=== PATIENT | female | born 1995 | race Two or more races ===

== ENCOUNTER 2025-06-23 15:27 | Emergency (ER) | payer OTHER, SELFPAY ==
[2025-06-23 15:48] VITALS: BP 137/91; PULSE 70; RESP 18; TEMP 37; O2SAT 100; BMI 24.0
--- NOTE | 2025-06-23 15:56 | XR_ITS ---
Examination: CT abdomen and pelvis without contrast. Coronal 3-D reconstructions. Sagittal 2-D reconstructions. Date and time of exam: June 23, 2025, 1821 hours INDICATIONS: Onset left flank pain today CTDI: vol (mGy): 6.14 DLP: (mGycm): 333 Technique: Axial images of the abdomen have been obtained, 3 mm slice thickness Intravenous contrast material has not been administered. Low dose protocols were performed. One or more of the following dose reduction techniques were used; automated exposure control, adjustment of the mA and/or KV according to patient size, use of iterative reconstruction technique. Findings: No visualized liver or splenic lesion No gallstones No peripancreatic edema Normal adrenal glands 1 mm left renal calculus Mild left hydronephrosis, 2 mm distal left ureteral calculus No bowel obstruction No pericecal inflammatory change Anteverted uterus Mild disc narrowing posteriorly L5-S1 IMPRESSION: Mild left hydronephrosis secondary to 2 mm distal left ureteral calculus
--- NOTE | 2025-06-23 15:56 | PD.EDRME ---
Rapid Medical Screening Exam RME Arrival date/time: 06/23/25 15:27 30-year-old female with no known medical history presents to the emergency room with a chief complaint of left-sided flank pain that radiates down to the left lower abdominal area x 1 day I have greeted and performed a focused initial assessment of this patient. A comprehensive ED assessment and evaluation of the patient, analysis of all test results, and completion of the medical decision making process will be conducted by additional ED providers. Chief Complaint: Back Pain/Injury Vital signs: Vital Signs Temperature 98.6 F 06/23/25 15:48 Pulse Rate 70 06/23/25 15:48 Respiratory Rate 18 06/23/25 15:48 Blood Pressure 137/91 H 06/23/25 15:48 Pulse Oximetry (%) 100 06/23/25 15:48 Oxygen Delivery Method Room Air 06/23/25 15:48 Vital signs reviewed by provider: Yes Exam: Left CVA tenderness with palpation Tenderness to the left lower quadrant of the abdomen Clinical Impression: Ureteral calculi
[2025-06-23 16:51] LABS: Basophils # (Auto) 0.0 Thou/mm3 (0.0-0.2); Basophils % (Auto) 0 % (0-2.5); Eosinophils # (Auto) 0.0 Thou/mm3 (0.0-0.5); Eosinophils % (Auto) 0 % (0-10); Hematocrit 41.8 % (36.0-46.0); Hemoglobin 14.0 g/dL (12.0-16.0); Immature Granulocytes Auto 0.06 Thou/mm3 (0.00-0.00); Lymphocytes # (Auto) 1.3 Thou/mm3 (1.0-4.8); Lymphocytes % (Auto) 10 % (10-50); Mean Corpuscular HGB Conc 33.5 g/dl (31.0-37.0); Mean Corpuscular Hemoglobin 29.4 pg (25.0-35.0); Mean Corpuscular Volume 88 fL (80-100); Monocytes # (Auto) 0.5 Thou/mm3 (0.0-0.8); Monocytes % (Auto) 4 % (0-12); Neutrophils # (Auto) 11.2 Thou/mm3 (1.8-7.7); Neutrophils % (Auto) 86 % (37-80); Nucleated Red Blood Cell # 0.00 Thou/mm3 (0.00-0.00); Nucleated Red Blood Cell % 0 /100 WBC (0); Platelet Count 290 Thou/mm3 (140-440); RDW Standard Deviation 41.1 fL (36.4-46.3); Red Blood Count 4.77 Miln/mm3 (4.00-5.20); White Blood Count 13.1 Thou/mm3 (3.6-11.0)
[2025-06-23] MEDS: HYDROcodone/APAP 5/325 TABLET 1 TAB PO ×2 (17:08→20:17)
[2025-06-23 17:11] LABS: Collection Type, Urine Clean Catch
[2025-06-23 17:12] LABS: Alanine Aminotransferase 19 U/L (10-49); Albumin, Serum 5.1 gm/dL (3.5-5.0); Albumin/Globulin Ratio 1.8 (1.2-2.2); Alkaline Phosphatase 90 U/L (46-116); Anion Gap 10 (7-16); Aspartate Amino Transferase 22 U/L (0-34); BUN/Creatinine Ratio 10 Ratio (12-20); Bilirubin,Total 0.4 mg/dL (0.3-1.2); Blood Urea Nitrogen 10 mg/dL (9-23); Calcium 9.6 mg/dL (8.3-10.6); Calcium (Corrected) 9.6 mg/dL (8.5-10.1); Carbon Dioxide 27.0 mMol/L (20.0-31.0); Chloride 103 mMol/L (98-107); Creatinine (Component) 1.0 mg/dL (0.6-1.3); Estimated Creatinine Clearance 75.4 mL/min (>60); Globulin 2.9 gm/dL (2.3-3.5); Glucose 105 mg/dL (74-106); Lipase 37 U/L (12-53); Osmolality,Calculated 278 (275-295); Potassium 4.8 mMol/L (3.4-5.1); Sodium 140 mMol/L (136-145); Total Protein 8.0 gm/dL (5.7-8.2); eGFR > 60 See Note
[2025-06-23 17:16] LABS: Bilirubin,Urine Negative (Negative); Blood,Urine 3+ (Negative); Clarity,Urine Clear (Clear/Hazy); Color,Urine Lt-Yellow (Lt Yel-Yel); Glucose, Urine Negative (Negative); Ketones,Urine 3+ (Negative); Leukocyte Esterase,Urine Negative (Negative); Nitrite,Urine Negative (Negative); PH,Urine 6.0 (5.0-7.0); Protein,Urine Trace (Neg - Trace); RBC,Urine 17 /hpf (0-3); Specific Gravity,Urine 1.026 (1.001-1.035); Squamous Epithelial Cell,Urine 1 /hpf (0-5); Urobilinogen,Urine Negative mg/dL (0.0-1.0); WBC,Urine 3 /hpf (0-5)
[2025-06-23 17:21] LABS: HCG Qualitative,Urine Negative
--- NOTE | 2025-06-23 19:39 | PD.EDBACK ---
ED Back Injury Pain RME/HPI General Chief Complaint: Back Pain/Injury Stated Complaint: Lower left back pain Time Seen by Provider: 06/23/25 15:57 Arrival date/time: 06/23/25 15:27 This is a case of 30-year-old female with no medical history came in in the emergency room due to left flank pain radiating to the left lower abdomen and left lower back for 1 day patient denies injury or trauma with nausea but no vomiting no diarrhea no constipation persistence of the symptoms this patient decided to sought consult here in the emergency room Limitations: no limitations RME / HPI RME / HPI Narrative: 06/23/25 15:27 30-year-old female with no known medical history presents to the emergency room with a chief complaint of left-sided flank pain that radiates down to the left lower abdominal area x 1 day I have greeted and performed a focused initial assessment of this patient. A comprehensive ED assessment and evaluation of the patient, analysis of all test results, and completion of the medical decision making process will be conducted by additional ED providers. Exam: Left CVA tenderness with palpation Tenderness to the left lower quadrant of the abdomen Impression: Ureteral calculi Related Data Previous Rx's ?Medication ?Instructions ?Recorded hydrocodone 5 mg-acetaminophen 325 1 tab PO Q6H PRN pain #12 tabs 06/23/25 mg tablet ondansetron 4 mg disintegrating 4 mg PO Q8H #20 tabs 06/23/25 tablet tamsulosin 0.4 mg capsule 0.4 mg PO QDAY 10 days #10 caps 06/23/25 Allergies Allergy/AdvReac Type Severity Reaction Status Date / Time No Known Allergies Allergy Verified 06/23/25 15:33 Review of Systems Review of Systems Systems Reviewed: All systems reviewed, normal except as documented Past Medical History Social History SMOKING STATUS: Never smoker ED Exam General Limitations: Present no limitations General appearance: Present alert, in no apparent distress and other (Patient is awake alert oriented not in distress nontoxic looking well-hydrated well-nourished) Head Head exam: Present atraumatic, normocephalic and normal inspection Eye Eye exam: Present normal appearance, PERRL and EOMI ENT ENT exam: Present normal exam, normal oropharynx and mucous membranes moist Neck Neck exam: Present normal inspection, full ROM and trachea midline; Absent tenderness, meningismus, lymphadenopathy or thyromegaly Chest Chest inspection: Present normal inspection and symmetric chest wall rise; Absent tenderness Respiratory Respiratory exam: Present normal lung sounds bilaterally; Absent respiratory distress, wheezes, stridor, accessory muscle use or prolonged expiratory phase Cardiovascular Cardiovascular exam: Present regular rate, normal rhythm and normal heart sounds; Absent bradycardia, tachycardia, irregular rhythm, systolic murmur or diastolic murmur Abdominal Exam Abdominal exam: Present soft, tenderness (Mild tenderness left flank and left lower quadrant no CVA tenderness bladder is not distended not tender) and normal bowel sounds; Absent distention, guarding, rebound, rigidity, diminished bowel sounds, hyperactive bowel sounds, hypoactive bowel sounds, organomegaly, psoas sign, obturator sign, Maier's sign, Rovsing's sign, tenderness at McBurney's Point or hernia Extremities Exam Extremities exam: Present normal inspection and full ROM Back Exam Back exam: Present normal inspection and full ROM; Absent tenderness, CVA tenderness (R), CVA tenderness (L), muscle spasm, paraspinal tenderness, vertebral tenderness, rashes, sciatic notch tenderness (R), sciatic notch tenderness (L), straight leg raise (R) or straight leg raise (L) Neurological Exam Neurological exam: Present alert, oriented X3, CN II-XII intact, normal gait and reflexes normal; Absent motor sensory deficit Psychiatric Psychiatric exam: Present normal affect and normal mood Skin Skin exam: Present warm, dry, intact, normal color and other (Excellent skin turgor) Course Quality Measures none Orders Category Date Time Status CT abdomen pelvis wo con Stat Exams 06/23/25 15:56 Completed CBC Stat Lab 06/23/25 16:10 Completed CMP [Comprehensive Metabolic Panel] Stat Lab 06/23/25 16:10 Completed HCG Qualitative,Urine Stat Lab 06/23/25 16:58 Completed Lipase Stat Lab 06/23/25 16:10 Completed UA [Urinalysis] Stat Lab 06/23/25 16:58 Completed Urine Culture Stat Lab 06/23/25 16:58 Received HYDROcodone*/APAP 5/325 [[place] 5/325] Med 06/23/25 15:56 Discontinued 1 tab PO X1 ONE HYDROcodone*/APAP 5/325 [[place] 5/325] Med 06/23/25 19:35 Once 1 tab PO X1 ONE Ketorolac Inj [Toradol Inj] Med 06/23/25 19:35 Once 30 mg IM X1 ONE Ondansetron Odt [Zofran Odt] Med 06/23/25 19:35 Once 4 mg PO X1 ONE Tamsulosin HCl [Flomax] Med 06/23/25 19:35 Once 0.4 mg PO X1 ONE Vital Signs Vital signs: Vital Signs Temperature 98.6 F 06/23/25 15:48 Pulse Rate 70 06/23/25 15:48 Respiratory Rate 18 06/23/25 15:48 Blood Pressure 137/91 H 06/23/25 15:48 Pulse Oximetry (%) 100 06/23/25 15:48 Oxygen Delivery Method Room Air 06/23/25 15:48 Oxygen saturation is 100% in room air Back Pain / Injury MDM Narrative MDM Narrative:: This is a case of 30-year-old female with no medical history came in in the emergency room due to left flank pain radiating to the left lower abdomen and left lower back for 1 day patient denies injury or trauma with nausea but no vomiting no diarrhea no constipation persistence of the symptoms this patient decided to sought consult here in the emergency room physical examination patient is awake alert oriented not in distress nontoxic looking well-hydrated well-nourished vital signs stable BP stable not tachycardic not tachypneic afebrile and nonhypoxic patient noted to have mild to moderate tenderness on the left flank and mild tenderness in left lower abdomen no guarding no rebound no rigidity normal active bowel sounds in all quadrants negative psoas negative straight or negative Rovsing's negative McBurney's negative Maier sign negative CVA tenderness bladder is not distended not tender back exam noted to be normal ROM intact neurovascular intact blood test showed no leukocytosis no anemia kidney and liver function is normal no electrolyte imbalance urinalysis is normal patient CT scan of the abdomen pelvis showed a DDD lumbar and ureteral stone 2 mm in size with hydronephrosis at this point patient is well-hydrated thus hydration was not given but patient was given Toradol [place] which improved and resolve the pain patient was also given Zofran for vomiting and Flomax for ureteral stone patient will follow-up with PCP in 2 days for reevaluation and to see a urologist for ureteral stone and hydronephrosis and neurosurgeon for DDD lumbar at the time of exam no signs and symptoms of cauda equina no signs and symptoms sepsis dehydration or hypoxia for any worsening symptoms or any emergent concern return precaution in the ER is advised Patient was discharged with comfortable condition walking with stable gait. Patient verbalized no further complains explained diagnosis and answered patient question. Patient is comfortable with the proposed management plan including the need to follow up with his/her primary care physician and any specialist if applicable Discussed patient for any urgent condition or worsening sx, He/She needed to go to emergency room immediately or call 911. Patient acknowledge the responsibility to follow up as instructed and to monitor her/his symptoms. For any persistence of the symptoms for more than 3-5 days return precaution advised. Discussed the result of the test and was given printed discharge instruction Patient data External records reviewed:: [facility] previous records Clinical information provided by:: patient Social determinants that could affect healthcare access:: none Patient has the following chronic illnesses:: None How is presenting disease/condition affected by chronic disease/condition?: no chronic disease Evaluation data The following diagnostics were reviewed and interpreted by me:: lab results and radiology exam(s) Lab and/or radiology exams considered but not ordered:: Reviewed Interpretation Summary: Reviewed Medications / Prescriptions Medications or Prescriptions considered but not ordered:: Given Medication administrations:: Medication Administration History Hydrocodone Bitart/Acetaminophen (Hydrocodone/Apap 5/325 Tablet) 1 tab PO X1 ONE Stop: 06/23/25 19:36 Ketorolac Tromethamine (Ketorolac Inj 60 Mg/2 Ml Vial) 30 mg IM X1 ONE Stop: 06/23/25 19:36 Ondansetron HCl (Ondansetron Odt 4 Mg Tabrap) 4 mg PO X1 ONE; Protocol Stop: 06/23/25 19:36 Tamsulosin HCl (Tamsulosin Hcl 0.4 Mg Capsule) 0.4 mg PO X1 ONE Stop: 06/23/25 19:36 Discontinued Medications Hydrocodone Bitart/Acetaminophen (Hydrocodone/Apap 5/325 Tablet) 1 tab PO X1 ONE Stop: 06/23/25 15:57 Last Admin: 06/23/25 17:08 Dose: 1 tab Documented By: AA Given Consultations Consultation(s) initiated? (list below): No Diagnosis Differential diagnosis back pain/injury: lumbar radiculopathy, sciatica, pyelonephritis and other (Ureteral stone DDD lumbar herniated disc) Most likely diagnosis given after review of the tests above:: Ureteral stone DDD lumbar Admission Indicated Admission indicated?: not indicated Explain why admission is indicated or not indicated:: Not indicated Admission Request Was there a request for admission?: No Admission Attestation Admission request attestation: Not indicated Disposition Plan Disposition Plan: Discharge Discharge Attestation Discharge Attestation: The patient and all family members were given an opportunity to ask questions and understood the discharge instructions. Discharge instructions specifically effects, indications for sooner follow up or return to the emergency department, and the expected course of current diagnosis. Patient condition: Stable Discharge Plan Plan Patient Disposition: HOME (Self Care) Patient condition on transfer: Stable Prescriptions/Referrals Prescriptions/Med Rec: New hydrocodone-acetaminophen 5-325 mg tablet 1 tab PO Q6H MDD max 4 tabs per day PRN (Reason: pain) Qty: 12 0RF tamsulosin 0.4 mg capsule 0.4 mg PO QDAY 10 Days Qty: 10 0RF ondansetron 4 mg tablet,disintegrating 4 mg PO Q8H Qty: 20 0RF Referrals: No Primary/Family,Physician [Primary Care Provider] - In 1 week Problem List Clinical Impression: Ureteral stone, Hydronephrosis, DDD (degenerative disc disease), lumbar Patient/Caregiver Discharge Instructions Education Materials: Treating Kidney Stones ..., Understanding Hydronephrosis, ED Degenerative Disk Disease Additional Instructions: It is very important to follow-up with your primary care physician in 2 days for reevaluation and to be referred to urologist for further evaluation and treatment of ureteral stone and hydronephrosis he also need to see a neurosurgeon for DDD lumbar for possible MRI to rule out herniated disc and pain management doctor for pain control recurrence persistent worsening symptoms or any emergent concern call 911 or go to the nearest emergency room take your medication as directed keep hydrated Pedialyte Gatorade for hydration ice pack and warm compress as needed for pain advised Print Language: Cam[place]onian Stand Alone Forms: Romelia Award Info., Patient Portal Info Letter 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 Randhawa
[2025-06-23] MEDS: TAMSULOSIN HCL 0.4 MG CAPSULE PO (20:17)
[2025-06-23] MEDS: ONDANSETRON ODT 4 MG TABRAP PO (20:18)
[2025-06-23] MEDS: KETOROLAC INJ 60 MG/2 ML VIAL 30 MG IM (20:18)
[2025-06-23 20:21] VITALS: BP 127/65; PULSE 86; RESP 18; TEMP 36.6; O2SAT 98
== END 2025-06-23 20:22 | disposition home or self-care (01) ==
PROVIDERS: Nurse Practitioner Family; Emergency Provider Family Medicine
DX: N13.2 Hydronephrosis with renal and ureteral calculous obstruction (principal); M51.360 Other intervertebral disc degeneration, lumbar region with discogenic back pain only
CPT/HCPCS: 36415; 74176; 80053; 81001; 81025; 83690; 85025; 87086; 96372; 99283; J1885; Q0162; A9270